=== PATIENT | female | born 1950 | race Caucasian/White ===

== ENCOUNTER 2017-01-28 09:06 | Emergency (ER) | payer BC, MEDICARE ==
[2017-01-28 09:32] VITALS: BP 157/71
--- NOTE | 2017-01-28 09:51 | UC ---
Abdominal Pain Female HPI - HPI Summary HPI Summary: 66 YEAR OLD FEMALE PRESENTS WITH A HISTORY OF BREAST CANCER PRESENTS WITH RLQ/ RUQ PAIN AND CONSTIPATION. - History of Current Complaint Chief Complaint: UCGI Stated Complaint: RIGHT SIDE PAIN CONSTIPATION Time Seen by Provider: 01/28/17 09:13 Hx Obtained From: Patient Onset/Duration: Gradual Onset Severity Initially: Severe Severity Currently: Severe Allergies/Adverse Reactions: Allergies Allergy/AdvReac Type Severity Reaction Status Date / Time Bee Venom Allergy Difficulty Verified 01/28/17 09:46 Breathing/Wheezing Eggs or Egg-derived Products Allergy Unknown Verified 01/28/17 09:35 Reaction Details almonds Allergy Swelling Uncoded 01/28/17 09:35 Of Face,Lips,& Throat pitted fruits Allergy Swelling Uncoded 01/28/17 09:35 Of Face,Lips,& Throat Home Medications: Home Medications Albuterol HFA INHALER* [Ventolin HFA Inhaler*] 2 puff INH BID PRN 01/28/17 [ History Confirmed 01/28/17] Calcium 1,000 mg PO BID 01/28/17 [History Confirmed 01/28/17] Carvedilol TAB* [Coreg TAB*] 6.25 mg PO BID 01/28/17 [History Confirmed 01/28/17 ] Cholecalciferol [Vitamin D] 1,000 unit PO BID 01/28/17 [History Confirmed ] Epi-Pen 1 dose IM SEE INSTRUCTIONS PRN 01/28/17 [History Confirmed 01/28/17] Lisinopril [Lisinopril 2.5 MG-] 2.5 mg PO DAILY 01/28/17 [History Confirmed ] Multivitamins/Minerals TAB* [Thera M Plus TAB*] 1 tab PO DAILY 01/28/17 [ History Confirmed 01/28/17] Plant Sterols and Stanols-Pant [Cholestoff Complete 300-100 mg] 3 cap PO BID [History Confirmed 01/28/17] PMH/Surg Hx/FS Hx/Imm Hx Previously Healthy: Yes - Surgical History Surgical History: Yes Surgery Procedure, Year, and Place: right mastectomy 2012, hysterectomy appy both 1996; b/l cataracts 2011 & 2007 - Social History Alcohol Use: None Substance Use Type: None Smoking Status (MU): Never Smoked Tobacco Review of Systems Constitutional: Negative Skin: Negative Eyes: Negative ENT: Negative Respiratory: Negative Cardiovascular: Other - RLQ/RUQ PAIN Gastrointestinal: Negative Genitourinary: Negative Motor: Negative Neurovascular: Negative Musculoskeletal: Negative Neurological: Negative Psychological: Negative Is Patient Immunocompromised?: Yes All Other Systems Reviewed And Are Negative: Yes Physical Exam Triage Information Reviewed: Yes Vital Signs: Initial Vital Signs Temp 36.8 C 01/28/17 09:15 Pulse 67 01/28/17 09:15 Resp 16 01/28/17 09:15 BP 157/71 01/28/17 09:15 Vital Signs Reviewed: Yes Eye Exam: Normal ENT Exam: Normal Dental Exam: Normal Neck exam: Normal Neck: Positive: 1 Respiratory Exam: Normal Cardiovascular Exam: Normal Abdomen Description: Positive: Other: - RUQ/RLQ PAIN Musculoskeletal Exam: Normal Neurological Exam: Normal Psychological Exam: Normal Skin Exam: Normal Abd Pain Female Course/Dx - Differential Dx/Diagnosis Provider Diagnoses: RUQ AND RLQ PAIN Discharge - Discharge Plan Condition: Stable Disposition: OTHER Discharge Disposition Comment: PATIENT SUGGESTED TO GO TO ER FOR SEVERE RUQ PAIN. Patient Education Materials: Acute Abdominal Pain (ED) Referrals: ZEB Pike [Primary Care Provider] - Additional Instructions: PATIENT SUGGESTED TO GO TO ER FOR SEVERE RUQ PAIN.
== END 2017-01-28 10:08 ==
LOC: UCCORT 09:06
DX: R10.31 Right lower quadrant pain (principal); R10.11 Right upper quadrant pain; Z91.030 Bee allergy status; Z91.018 Allergy to other foods; Z91.012 Allergy to eggs; Z85.3 Personal history of malignant neoplasm of breast
CPT/HCPCS: 81003; 99202; G0463